=== PATIENT | female | born 1950 | race Two or more races ===

== ENCOUNTER 2024-08-14 18:29 | Emergency (ER) | payer OTHER ==
[~2024-08-14] VITALS: Ht 154.9 cm; Wt 75.1 kg
--- NOTE | 2024-08-14 19:33 | DVH ---
EXAMINATION: XY L RIB X RAY INDICATION: pain s/p fall COMPARISON: None TECHNIQUE: Frontal view of the chest and 3 views of the left ribs history FINDINGS: No focal consolidation, pleural effusion or significant pneumothorax. Normal cardiomediastinal silhou ette. No displaced left rib fracture. IMPRESSION: 1. No acute cardiopulmonary disease. 2. No displaced left rib fracture.
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
[2024-08-14 21:38] VITALS: BP 146/98; TEMP 98.3
[2024-08-14 21:42] VITALS: PULSE 86; RESP 16; O2SAT 93
== END 2024-08-14 21:49 | disposition home or self-care (01) ==
LOC: ER 18:29
DX: S23.41XA Sprain of ribs, initial encounter (principal); S20.219A Contusion of unspecified front wall of thorax, initial encounter; Z88.0 Allergy status to penicillin; W01.0XXA Fall on same level from slipping, tripping and stumbling without subsequent striking against object, initial encounter; Y93.89 Activity, other specified; Y92.89 Other specified places as the place of occurrence of the external cause; Y99.8 Other external cause status
CPT/HCPCS: 71101